=== PATIENT | female | born 1950 | race Caucasian/White ===

== ENCOUNTER 2022-05-20 08:00 | Outpatient (RCR) | payer MEDICARE, BC, SELFPAY ==
--- NOTE | 2022-05-20 12:42 | PT.OPDNX ---
PT [facility] Outpatient Daily Note PT [facility] Outpatient Daily Note Start: 04/02/22 11:15 Freq: Status: Active Protocol: Document 05/20/22 12:29 SAWYER (Rec: 05/20/22 12:41 SAWYER [id number]) E-signed By BLAIR VoraT, MS PT OP Daily Progress Note Visit Information Note Type Recert/Progress Note Visit Number [id number] Insurance Authorized Visits - Physician Authorized Visits - Insurance Information Recert Due Date 05/13/22 Insurance Name Medicare B,[employer] Shield Medical Diagnosis Status-post right femur fracture ORIF 01/13/22 Treating Diagnosis R hip pain, decreased R LE flexibility, R LE weakness, imbalance and gait dysfunction . Subjective Subjective Pt reports she has stopped using a SPC for walking on even surfaces but continues to use one with longer distances of amb and uneven surfaces. R hip became tight and sore during week long trip to her cabin after [address] HEP going well and pt motivated to return to the pool when it opens. Pain Comments 0-3/10 Objective Other/Pertinent Objective Hip AROM Flexion: R 103 deg, L 108 deg Knee AROM: R 0-0-122 deg, L 0-0-138 deg Strength Hip flex: right 4/5, left 5/5 Knee ext: right 5/5, left 5/5 Knee flex: right 4/5, left 5/5 DF: bilat 5/5 Gait: without AD increased B stride width, decreased velocity and mild decreased R toe off. Swelling: none observed Sensation: light touch intact bilat LE Other: HS 90-90: B lacking 20 Patient Instructed in Risks/Benefits Yes Therapeutic Exercise Therapeutic Exercise Minutes (minutes) 45 Therapeutic Exercise: To Restore NuStep progressed 10 min, L4 Functional Status Gastroc stretching, HR, standing december at [facility] standing hip abd R/L progressed light B UE support 3 x 9 sidestepping R/L progressed 30 x 6 Progressed 6 step ups fwd 1 UE support 8 x 3 with fatigue Progressed to SLS light 1 UE support B Progressed to walking december 26 ' x 6 no UE support with fatigue Progressed leg press B 80# 11 x 3 Progressed seated hip ABD B BTB 8 x 3 Gait practice without SPC cueing for quad and glute engagement, heel-toe pattern and increased velocity. Stable pattern following. Foam roller to length of R quad and ITB Skilled passive R piriformis stretching. Treatment Minutes Timed Code Treatment Minutes 45 Total Treatment Time 45 Billing Units Therapeutic Exercise Units 2 Assessment/Impression Assessment/Impression Pt displays steady progress in PT with improved quality of gait without an AD with continued imbalance, deconditioning and R LE weakness. Pt able to perform more daily activities with decreased pain levels. R piriformis and hip tightness leading to elevated pain levels with extended sitting and driving. Endurance improving with decreased fatigue levels with progression of unilateral strength and balance exercises today. Making steady progress towards all PT goals and she will benefit from continued skilled PT intervention working towards attaining her PLOF, progressing as able. Plan of Care Physical Therapy Goals Short-term goals to be completed in 4 weeks: 1.Pt will report improved quality of sleep waking <2x per night due to R hip pain for >3 consecutive days. MET. 2.Pt display improved R LE strength as evidenced by performing >10 SLR to improve quality of gait. MET 3.Pt will be able to amb for > 100 feet with FWW or SPC to safely attend medical appointments. MET Long-term goals to be completed in 12 weeks: 1.Pt will be independent and compliant with HEP. Progressing 2.Pt will display improved R SLS >3 sec with minimal sway to decrease falls risk. Progressing 3.Pt will display improved right hip flex, ABD and ext strength >/= 4+/5 to improve quality of gait. Progressing 4.Pt will report >50% improvement in LEFS questionnaire to significantly improve tolerance to functional activities. Progressing Daily Plan of Care Continue per POC Recertification Information Initial Certification Date 02/23/22 Recertification Start Date 05/20/22 Recertification Due Date 08/18/22 Reasons to Continue Skilled Therapy See assessment. Rehabilitation Potential Good due to deconditioning and PSH. Continued Plan of Care and Interventions Continued therapeutic exercise , NM re-ed, and manual therapy 1x per week for 6-8 additional visits, transitioning to I sx management as able. Provider Signature Shows Agreement With POC & Medical Necessity Physician Comment/Change Comment or Changes Physician NPI Number #
== END 2022-12-23 16:29 | disposition home or self-care (01) ==
PROVIDERS: PCP Family Medicine; Visit Provider Orthopaedic Surgery
DX: M25.551 Pain in right hip (principal); Z51.89 Encounter for other specified aftercare
CPT/HCPCS: 97110

== ENCOUNTER 2022-09-24 08:51 | Outpatient (CLI) | payer MEDICARE, BC, SELFPAY ==
--- NOTE | 2022-09-24 09:15 | MR_ITS ---
[address] [address] Phone:?[phone] Fax:?[phone] Referring Physician Information: Jasiel Desouza M.D. [id number] [facility] [address] Phone:?[phone] Fax:?[phone] Patient:Adenike Mcgraw D.O.B:?1950 Sex:?Female Phone:?[phone] [facility] MRN:?[id number] Exam Date:?09/24/2022 ? EXAM: MRI of the RIGHT KNEE, without contrast CLINICAL: Right knee pain. Evaluate for medial meniscal tear. COMPARISONS: X-rays dated 09/16/2022. TECHNICAL: MR sequences of the right knee: sagittals: PD, PDFS coronals: PD, STIR axials: PD, PDFS SEDATION: None. CONTRAST: None. FINDINGS: Ligaments: ACL: Intact. PCL: Mild thickening and increased signal involving the ligament suggesting mild mucoid degeneration. No evidence of ligament disruption. MCL: Intact. LCL: There is mild partial tearing of the conjoined distal LCL and biceps femoris tendon. Posterolateral corner: Mild partial tearing of the conjoined distal LCL and biceps femoris tendon. Popliteus tendon, iliotibial band, and the popliteofibular ligament appear intact. Posteromedial corner: Semimembranosus, pes anserine tendons and posterior oblique ligament appear intact. Extensor mechanism: Patellar tendon: Intact, without tendinopathy. Quadriceps tendon: Intact, without tendinopathy. Retinacula: Medial and lateral retinacula are intact. Fat pads: Unremarkable infrapatellar Hoffa's, quadriceps and prefemoral fat pads. Patellofemoral joint: Patella: Small segment of full-thickness chondral loss involves the inferior junction of the patellar median ridge and lateral facet on axial series 4 image 18. There is heterogeneity and grade 2-3 chondral thinning involving the medial patellar facet and patellar median ridge with minimal subchondral reactive marrow edema involving the patellar median ridge. Trochlea: No significant chondromalacia. Medial compartment: Medial meniscus: No evidence of discrete meniscal tear or meniscal displacement. Medial cartilage: No significant chondromalacia. Lateral compartment: Lateral meniscus: No evidence of discrete meniscal tear or meniscal displacement. Lateral cartilage: No significant chondromalacia. Knee joint: Effusion: Physiologic right knee effusion. Intra-articular bodies:?No convincing bodies identified. Popliteal cyst: None. Bones: Postoperative changes are seen to involve the distal femur with associated postsurgical artifact. No osseous fracture site is identified. IMPRESSION: 1. Patellar chondromalacia/chondral loss as above. 2. Mild partial tearing of the conjoined distal LCL and biceps femoris tendon. Mild mucoid degeneration of the PCL. 3. Postoperative changes involving the distal femur. 4. No evidence of meniscal tear or fracture. No joint effusion. JCZ Electronically signed on 09/24/2022 12:38:00 PM by Dion Rios D.O.
== END 2022-09-24 08:52 | disposition home or self-care (01) ==
LOC: MRI 08:52
PROVIDERS: PCP Family Medicine; Visit Provider Orthopaedic Surgery
DX: M25.561 Pain in right knee (principal); M22.41 Chondromalacia patellae, right knee
CPT/HCPCS: 73721

== ENCOUNTER 2022-11-25 08:45 | Outpatient (RCR) | payer MEDICARE, BC, SELFPAY ==
--- NOTE | 2022-10-27 08:45 | PT.OPEX ---
PT [facility] Outpatient Eval PT [facility] Outpatient Eval Start: 10/27/22 07:43 Freq: Status: Active Protocol: Document 10/27/22 07:44 WANDA (Rec: 10/27/22 08:36 WANDA [id number]) E-signed By Benedicto Luevano DPT Physical Therapy Outpatient Evaluation Insurance Information Insurance Name Medicare B,Blue [employer] Medical Diagnosis R knee OA Treating Diagnosis muscle weakness limited ROM, Referring MD deborah de jesus Subjective Subjective Gin comes into clinic dealing with R knee pain due to OA. Last january she had a fall where she broke her femur and hip, which was the second time she had broken her femur . She thinks after the fall she started walking differently which has increased the pain on the R, the L knee can be uncomfortable but not to the same degree. She does have a internal fixation for the R femur. Stairs have become troublesome, along with walking can only be several minutes before needing rest. States sitting too long can make the knee extra stiff. She would like to get back into the [facility] to workout more along with work on her balance due to hx of falls. Date of Last Physician Visit 10/07/22 Current Work Status Retired Precautions Treatment Precautions/Contraindications diabetes and cancer - not dealing with any more, hx of heart attacks Objective Other/Pertinent Objective GAIT/FUNCTIONAL MOBILITY ambulates with increased trunk lean over stance leg decreased pace Squat: narrow base squat with trunk lean to the L KNEE ROM L 3-0-114 R 2-104 LLE MMT: Hip flexion: R 4/5 L4+ /5 Hip abduction: R 3/5 L3+ /5 Hip extension: R 3+/5 L 4-/5 Knee flexion: R 4+/5 L4+ /5 Knee extension: R 4/5 L4+ /5 SPECIAL TEST Joint line tenderness: positive B knee and medial joint line more sensitive vs lateral bilateral hamstring tightness Tx: quad sets 3 sec holds B x 10 SLR flexion cueing for slow motion x 10 B - felt some nausea so needed prolonged rest held off on more strengthening due to symptoms hamstring stretch 5x 15 sec holds Assessment Assessment/Impression Pt is a 72 yr old female who presents with concerns of right knee pain . Signs and symptoms likely indicating / consistent with R knee OA . Patient also has notable objective findings including limited ROM, impaired balance, decreased strength also likely contributing to the problem. Patient is a good candidate for skilled therapy to target deficits described above. Skilled PT intervention is necessary for use of therapeutic exercise manual therapy, neuromuscular re- education, gait training, and therapeutic activity. Functional impairments include difficulty with: walking, standing, sitting, stairs . See appropriate sections of PT eval for complete list of goals and POC. D/C plan and criteria is for pt to achieve the goals as listed below or until max rehab potential is met. Pt was agreeable with plan of care and goals established Plan of Care Rehabilitation Potential Good Physical Therapy Goals STG Pt will be able to perform 10 sit to stands without UE assist to allow for independence with transfers within 4 weeks Patient will demonstrate/ report ability to walk for 10 minutes with pain level <1/10, to allow for community and household ambulation within 4 weeks LTG Pt will be independent with HEP within 8 weeks to allow for independence and continued improvement past formal therapy Patient will demonstrate/ report ability to walk for 15 minutes with pain level <1/10, to allow for community and household ambulation within 8 weeks Patient will demonstrate/ report ability to stand for 10 minutes with pain level <1/10 , to allow for home , recreational and work tasks within 8 weeks Coordination/Communication With Referral Source Treatment Plan/Direct Interventions Gait Training,Joint Mobilization,Manual Therapy, Neuromuscular Re-ed,Self-Care/ Home Management,Therapeutic Activities,Therapeutic Exercises Frequency/Duration 1 x a week for 6-12 weeks Patient Will Be Discharged From Therapy Completion of LTG(s), Independently Progressing Evaluation Billing Complexity Low Certification Information Initial Certification Date 10/27/22 Ending Certification Date 01/20/23 Physician Comment/Change : Physician NPI Number #
== END 2023-01-20 10:18 | disposition home or self-care (01) ==
PROVIDERS: PCP Family Medicine; Visit Provider Orthopaedic Surgery
DX: M17.11 Unilateral primary osteoarthritis, right knee (principal); Z51.89 Encounter for other specified aftercare
CPT/HCPCS: 97110; 97161

== ENCOUNTER 2023-06-26 19:11 | Outpatient (CLI) | payer OTHER, MEDICARE, BC, SELFPAY | END 2023-06-26 19:12 | disposition home or self-care (01) | LOC: AMB 08-02 12:04 | PROVIDERS: PCP Family Medicine; Visit Provider Family Medicine | DX: S29.9XXA Unspecified injury of thorax, initial encounter (principal); V49.49XA Driver injured in collision with other motor vehicles in traffic accident, initial encounter; Y92.410 Unspecified street and highway as the place of occurrence of the external cause | CPT/HCPCS: A0425; A0427 ==

== ENCOUNTER 2023-06-26 19:38 | Inpatient (IN) | payer OTHER, MEDICARE, BC, SELFPAY ==
[2023-06-26] VITALS (22 sets, daily range): BP systolic 85–121; BP diastolic 36–65; PULSE 62–75; RESP 16–19; TEMP 36–36.5; O2SAT 90–98; BMI 38.1; BMI 40.2
--- NOTE | 2023-06-26 19:50 | CRLHL7_ITS ---
For Patients: As a result of the Century Cures Act, medical imaging exams and procedure reports are released immediately into your electronic medical record. You may view this report before your referring provider. If you have questions, please contact your health care provider. INDICATION: Trauma. COMPARISON: 10/13/2017, 01/12/2022 TECHNIQUE: CT of the brain/head without the use of IV contrast. Multiplanar axial, coronal, and sagittal reformats were reconstructed. FINDINGS: Normal singh-white matter differentiation throughout. No intracranial hemorrhage. No mass, mass effect, or midline shift. The ventricles are normal in size and shape. No fracture or focal osseous lesion. The mastoid and middle ears are clear. The paranasal sinuses are clear. Included orbit and globe are normal. IMPRESSION: Normal head CT. Please note that all CT scans at this facility use dose modulation, iterative reconstruction, and/or weight-based dosing when appropriate to reduce radiation dose to as low as reasonably achievable. Dictated by Jessica Jeronimo MD @ 06/26/2023 9:01:44 PM (Electronically Signed)
--- NOTE | 2023-06-26 19:50 | CRLHL7_ITS ---
For Patients: As a result of the Century Cures Act, medical imaging exams and procedure reports are released immediately into your electronic medical record. You may view this report before your referring provider. If you have questions, please contact your health care provider. INDICATION: Trauma. COMPARISON: 01/12/2022, same day head CT. TECHNIQUE: CT of the cervical spine without contrast. Multiplanar axial, coronal, and sagittal reformats were reconstructed. FINDINGS: No fracture or dislocation. C5-6 disc degenerative change. Minimal facet degenerative change. No severe neural foraminal stenosis. No central canal stenosis. No focal bony lesions. Severely enlarged thyroid that extends into the mediastinum. Coarsely calcified nodule left lobe. IMPRESSION: 1. No acute traumatic findings in the cervical spine. 2. Severely enlarged thyroid with nodules. This is not a new finding. Please note that all CT scans at this facility use dose modulation, iterative reconstruction, and/or weight-based dosing when appropriate to reduce radiation dose to as low as reasonably achievable. Dictated by Jessica Jeronimo MD @ 06/26/2023 9:05:28 PM (Electronically Signed)
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
[2023-06-26 20:11] LABS: Lactate* 1.5 mmol/L (0.5-1.9)
[2023-06-26 20:13] LABS: Basophils Absolute Auto 0.03 K/uL (0.00-0.30); Basophils Percent Auto 0.4 % (0.0-3.0); Eosinophils Absolute Auto 0.14 K/uL (0.00-0.50); Hematocrit 37.4 % (33.0-51.0); Hemoglobin* 12.4 gm/dL (12.0-16.0); Immature Granulocytes Abs Auto 0.07 K/uL (0.00-0.30); Lymphocytes Percent Auto 18.4 % (20-44); Mean Corpuscular HGB Conc 33 gm/dL (32-36); Mean Corpuscular Hemoglobin 29 pg (26-34); Mean Corpuscular Volume 88 fL (80-100); Monocytes Percent Auto 5.4 % (0.0-11.0); Neutrophils Percent Auto 72.8 % (42.0-72.0); Platelet Count* 217 K/uL (140-440); RDW Coefficient of Variation % 12.5 % (11.5-15.5); Red Blood Count 4.24 m/uL (4.00-5.20); White Blood Count* 7.02 K/uL (4.50-11.00)
[2023-06-26 20:14] LABS: Slide Review Reflex No
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
[2023-06-26 20:28] LABS: Albumin* 3.9 g/dL (3.3-5.0); Chloride* 102 mmol/L (96-114)
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
[2023-06-26 20:29] LABS: Potassium* 3.9 mmol/L (3.6-5.1); Sodium* 138 mmol/L (135-149)
[2023-06-26 20:31] LABS: Anion Gap 8 mEq/L (7-15); Aspartate Amino Transferase* 43 U/L (12-35); Bilirubin Total* 0.5 mg/dL (0.1-1.5); Blood Urea Nitrogen* 32 mg/dL (7-30); Carbon Dioxide* 28 mmol/L (20-32); Creatinine* 1.1 mg/dL (0.5-1.5); Est. Creatinine Clearance* 39.92; Estimated Glomerular Filt Rate 53 ml/min; Total Protein* 7.1 g/dL (6.0-8.3)
[2023-06-26 20:32] LABS: Alanine Aminotransferase* 23 U/L (4-35); Alkaline Phosphatase* 94 U/L (40-150); Calcium* 9.1 mg/dL (8.4-10.6); Glucose* 71 mg/dL (60-115)
[2023-06-26 20:43] LABS: INR 1.02 (0.91-1.10); Prothrombin Time 14.1 Seconds
[2023-06-26 20:44] LABS: Partial Thromboplastin Time* 26 Seconds (23-33)
[2023-06-26 20:51] LABS: Ethanol* < 0.01 % (0.01-0.03); NT Pro B Type NatriureticPept* 702 pg/mL
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
[2023-06-26 22:38] LABS: SARS PCR* Negative SARS-CoV-2 (Negative)
--- NOTE | 2023-06-26 23:15 | PC.NURSE ---
report given to Isaura PAPPAS on Med surg. belongings sent with patients . pateint transport to room 256
[2023-06-27] VITALS (7 sets, daily range): BP systolic 96–108; BP diastolic 44–58; PULSE 66–83; RESP 16–18; TEMP 36.3–37.2; O2SAT 90–97
[2023-06-27 00:27] LABS: Appearance Urine Slightly Cloudy (Clear); Bilirubin Urine Negative (Negative); Blood Urine 1+ (Negative); Color Urine Yellow (Yellow); Glucose Urine Negative (Negative); Ketones Urine 1+ (Negative); Leukocyte Esterase Urine Negative (Negative); Nitrite Urine Negative (Negative); Protein Urine Negative (Negative); Urobilinogen Urine 0.2 (0.2-1.0); pH Urine 5.5 (5.0-8.5)
[2023-06-27 00:36] LABS: Bacteria Urine Few; Calcium Oxalate Crystals Urine Few; Squamous Epithelial Cell Urine Few (None-Few)
[2023-06-27 00:51] LABS: Free T4 Free Thyroxine* 1.22 ng/dL (0.70-1.85)
[2023-06-27 01:05] LABS: Thyroid Stimulating Hormone* 0.145 uIU/mL (0.270-4.20)
[2023-06-27] MEDS: ACETAMINOPHEN 325 MG TABLET 650 MG PO ×2 (01:22→08:48)
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
[2023-06-27 06:40] LABS: Basophils Absolute Auto 0.01 K/uL (0.00-0.30); Basophils Percent Auto 0.1 % (0.0-3.0); Hematocrit 32.4 % (33.0-51.0); Hemoglobin* 10.8 gm/dL (12.0-16.0); Immature Granulocytes Abs Auto 0.03 K/uL (0.00-0.30); Immature Granulocytes Pct Auto 0.3 %; Lymphocytes Percent Auto 4.8 % (20-44); Mean Corpuscular HGB Conc 33 gm/dL (32-36); Mean Corpuscular Hemoglobin 30 pg (26-34); Mean Corpuscular Volume 90 fL (80-100); Monocytes Percent Auto 5.9 % (0.0-11.0); Neutrophils Percent Auto 88.9 % (42.0-72.0); Platelet Count* 186 K/uL (140-440); RDW Coefficient of Variation % 12.8 % (11.5-15.5); Red Blood Count 3.62 m/uL (4.00-5.20)
[2023-06-27] MEDS: OXYCODONE 5 MG TABLET PO ×2 (06:56→14:19)
[2023-06-27 07:05] LABS: Slide Review Reflex No
[2023-06-27] MEDS: CYANOCOBALAMIN (VITAMIN B-12) 500 MCG TABLET 1000 MCG PO (08:48)
[2023-06-27] MEDS: CETIRIZINE HCL 10 MG TABLET PO (08:48)
[2023-06-27] MEDS: ASPIRIN 81 MG TAB.CHEW PO (08:48)
[2023-06-27] MEDS: METOPROLOL SUCCINATE (XL) 100 MG TAB PO (08:48)
[2023-06-27] MEDS: OMEPRAZOLE 20 MG CAPSULE DR 40 MG PO (08:48)
[2023-06-27] MEDS: CLOPIDOGREL 75 MG TABLET PO (08:49)
[2023-06-27] MEDS: SODIUM CHLORIDE 0.9 % (FLUSH) 10 ML SYRINGE 5 ML IVF ×2 (08:49→20:32)
[2023-06-27] MEDS: IPRAT-ALBUT 0.5-2.5 MG/3 ML NEB IH ×3 (08:49→20:32)
[2023-06-27] MEDS: FLUOXETINE HCL 20 MG CAPSULE 40 MG PO (08:49)
[2023-06-27] MEDS: ROSUVASTATIN CALCIUM 10 MG TABLET 40 MG PO (08:49)
[2023-06-27 10:15] LABS: Creatine Kinase* 174 U/L (41-117); Creatinine* 1.3 mg/dL (0.5-1.5); Est. Creatinine Clearance* 33.78; Estimated Glomerular Filt Rate 44 ml/min
[2023-06-27 10:16] LABS: Blood Urea Nitrogen* 47 mg/dL (7-30)
[2023-06-27 10:19] LABS: C Reactive Protein* 2.9 mg/dL (0.5-1.0)
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
[2023-06-28] VITALS (8 sets, daily range): BP systolic 99–116; BP diastolic 14–50; PULSE 74–92; RESP 16–18; TEMP 36.4–37.1; O2SAT 93–97
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
[2023-06-28] MEDS: OXYCODONE 5 MG TABLET PO ×3 (07:42→21:11)
[2023-06-28 08:14] LABS: Hematocrit 26.8 % (33.0-51.0); Mean Corpuscular HGB Conc 34 gm/dL (32-36); Mean Corpuscular Hemoglobin 30 pg (26-34); Mean Corpuscular Volume 89 fL (80-100); Platelet Count* 171 K/uL (140-440); Red Blood Count 3.02 m/uL (4.00-5.20); White Blood Count* 7.77 K/uL (4.50-11.00)
[2023-06-28 08:28] LABS: Slide Review Reflex No
[2023-06-28 08:29] LABS: Chloride* 95 mmol/L (96-114)
[2023-06-28 08:30] LABS: Albumin* 3.4 g/dL (3.3-5.0); Potassium* 4.2 mmol/L (3.6-5.1); Sodium* 129 mmol/L (135-149)
[2023-06-28 08:32] LABS: Creatinine* 1.6 mg/dL (0.5-1.5); Est. Creatinine Clearance* 27.45; Estimated Glomerular Filt Rate 34 ml/min
[2023-06-28 08:33] LABS: Anion Gap 7 mEq/L (7-15); Aspartate Amino Transferase* 32 U/L (12-35); Blood Urea Nitrogen* 67 mg/dL (7-30); Carbon Dioxide* 27 mmol/L (20-32); Creatine Kinase* 157 U/L (41-117); Glucose* 272 mg/dL (60-115); Phosphorus* 4.6 mg/dL (2.5-4.5)
[2023-06-28 08:34] LABS: Calcium* 8.5 mg/dL (8.4-10.6)
[2023-06-28] MEDS: ROSUVASTATIN CALCIUM 10 MG TABLET 40 MG PO (08:39)
[2023-06-28] MEDS: ASPIRIN 81 MG TAB.CHEW PO (08:40)
[2023-06-28] MEDS: CLOPIDOGREL 75 MG TABLET PO (08:40)
[2023-06-28] MEDS: OMEPRAZOLE 20 MG CAPSULE DR 40 MG PO (08:40)
[2023-06-28] MEDS: CETIRIZINE HCL 10 MG TABLET PO (08:40)
[2023-06-28] MEDS: METOPROLOL SUCCINATE (XL) 100 MG TAB PO (08:41)
[2023-06-28] MEDS: FLUOXETINE HCL 20 MG CAPSULE 40 MG PO (08:41)
[2023-06-28] MEDS: CYANOCOBALAMIN (VITAMIN B-12) 500 MCG TABLET PO (08:42)
[2023-06-28] MEDS: SODIUM CHLORIDE 0.9 % (FLUSH) 10 ML SYRINGE 5 ML IVF (08:43)
[2023-06-28] MEDS: IPRAT-ALBUT 0.5-2.5 MG/3 ML NEB IH ×3 (08:48→21:03)
[2023-06-28 10:56] LABS: Creatine Kinase* 111 U/L (41-117)
[2023-06-28] MEDS: 0.9 % SODIUM CHLORIDE 1000 ml 1,000 ML 125 ML IV (11:47)
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
--- NOTE | 2023-06-28 18:08 | PC.NURSE ---
Pt alert and oriented. Pt had complaints of pain ranging from 4-6; see EMAR for intervention. Pt assist of one with walker and gait belt. Pt uses own insulin pump; 7am 282- 10 units; 11am 27- 8 units; 17-288- 20 units. Pt up in chair. Pt napped on and off throughout shift.?
[2023-06-28] MEDS: ACETAMINOPHEN 325 MG TABLET 650 MG PO (21:10)
[2023-06-28] MEDS: HYDROmorphone 0.5 mg/0.5 ml inj IVP (22:18)
--- NOTE | 2023-06-28 22:44 | W.PM.CROSSCO ---
Subjective Subjective Interval history: reviewed with RN; 1 unit prbc ordered appears previous order had been cancelled or dc'd
[2023-06-29] VITALS (14 sets, daily range): BP systolic 91–132; BP diastolic 36–57; PULSE 75–88; RESP 14–18; TEMP 36.3–37.1; O2SAT 90–97
[2023-06-29 06:03] LABS: HCO3 VBG 29 mmol/L (21-28); Lactate* 1.2 mmol/L (0.5-1.9); PCO2 VBG 51 mmHG (40-50); PO2 VBG 28.7 mmHG (25-47); pH VBG 7.366 (7.32-7.43)
[2023-06-29] MEDS: HYDROmorphone 0.5 mg/0.5 ml inj IVP ×3 (06:10→18:53)
[2023-06-29 06:16] LABS: Hemoglobin* 9.4 gm/dL (12.0-16.0); Mean Corpuscular HGB Conc 34 gm/dL (32-36); Mean Corpuscular Hemoglobin 30 pg (26-34); Mean Corpuscular Volume 88 fL (80-100); Platelet Count* 154 K/uL (140-440); Red Blood Count 3.18 m/uL (4.00-5.20); Slide Review Reflex No
--- NOTE | 2023-06-29 06:21 | PC.NURSE ---
End of Shift: Pt appropriate and cooperative throughout shift, remained AO. Received 1 unit PRBC, tolerated well, reported feeling less lightheaded when she stood up to use restroom post transfusion. Pt ambulates with walker, GB, SBA. Continent with bladder, no BM throughout shift. Reported leg pain on right side 10/10 at times, states it is at its worse when they are spasming. Resolved with IV dilauded.
[2023-06-29 06:27] LABS: Chloride* 101 mmol/L (96-114); Potassium* 4.3 mmol/L (3.6-5.1); Sodium* 135 mmol/L (135-149)
[2023-06-29 06:30] LABS: Creatinine* 1.1 mg/dL (0.5-1.5); Est. Creatinine Clearance* 39.92; Estimated Glomerular Filt Rate 53 ml/min
[2023-06-29 06:31] LABS: Anion Gap 4 mEq/L (7-15); Blood Urea Nitrogen* 53 mg/dL (7-30); Calcium* 8.8 mg/dL (8.4-10.6); Carbon Dioxide* 30 mmol/L (20-32); Glucose* 194 mg/dL (60-115); Magnesium* 2.7 mg/dL (1.5-2.6)
[2023-06-29 06:34] LABS: C Reactive Protein* 5.7 mg/dL (0.5-1.0)
[2023-06-29 07:13] LABS: NT Pro B Type NatriureticPept* 2540 pg/mL
[2023-06-29] MEDS: METOPROLOL SUCCINATE (XL) 100 MG TAB PO (09:10)
[2023-06-29] MEDS: ASPIRIN 81 MG TAB.CHEW PO (09:10)
[2023-06-29] MEDS: FLUOXETINE HCL 20 MG CAPSULE 40 MG PO (09:10)
[2023-06-29] MEDS: ROSUVASTATIN CALCIUM 10 MG TABLET 40 MG PO (09:10)
[2023-06-29] MEDS: CYANOCOBALAMIN (VITAMIN B-12) 500 MCG TABLET PO (09:10)
[2023-06-29] MEDS: CLOPIDOGREL 75 MG TABLET PO (09:10)
[2023-06-29] MEDS: IPRAT-ALBUT 0.5-2.5 MG/3 ML NEB IH ×3 (09:10→21:03)
[2023-06-29] MEDS: OMEPRAZOLE 20 MG CAPSULE DR 40 MG PO (09:10)
[2023-06-29] MEDS: SODIUM CHLORIDE 0.9 % (FLUSH) 10 ML SYRINGE 5 ML IVF ×3 (09:11→21:04)
[2023-06-29] MEDS: CETIRIZINE HCL 10 MG TABLET PO (09:16)
[2023-06-29] MEDS: ONDANSETRON 2 MG/ML inj 4 MG IVP (09:19)
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
--- NOTE | 2023-06-29 16:12 | PC.SOCIAL ---
Discharge planning: Met again with pt, and daughter in room regarding discharge plan. Pt is still hoping to return home from the hospital but has heard recommendation for short term rehab and is willing for high school social studies teacher to look for placement in case that is needed at discharge. Provided pt and family with halfway resource list including DHS ratings and information on where to find the website with facility ratings. Pt is requesting placement at [facility] in [place] as her first choice. Other facilities she would consider are [facility], [facility] and [facility]. abrasive worker called and left messages at all of these faciities. Awaiting calls back regarding bed availability. abrasive worker to follow up as needed.
[2023-06-29] MEDS: CYCLOBENZAPRINE HCL 10 MG TABLET PO (16:24)
[2023-06-29] MEDS: TIZANIDINE HCL 4 MG TABLET PO (17:24)
--- NOTE | 2023-06-29 17:47 | PC.NURSE ---
Pt alert and oriented. Pt had complaints of pain ranging from 4-10; See EMAR for intervention. Pt assist of one with walker and gait belt. Pt uses own insulin pump; 7am 207- 5.8 units; 11am 193- 3 units; 17 244- 15 units. Pt up in chair. Pt napped on and off throughout shift. Pt had multiple spasms in knee during shift; reported to hospitalist- see EMAR for intervention.?
[2023-06-29 20:03] LABS: Free T3 3.1 pg/mL (2.5-4.3)
[2023-06-30] VITALS (8 sets, daily range): BP systolic 104–129; BP diastolic 43–68; PULSE 74–86; RESP 16–18; TEMP 36.6–37.3; O2SAT 94–97
[2023-06-30] MEDS: ONDANSETRON 2 MG/ML inj 4 MG IVP (04:18)
[2023-06-30 06:25] LABS: Hemoglobin* 9.1 gm/dL (12.0-16.0); Mean Corpuscular HGB Conc 34 gm/dL (32-36); Mean Corpuscular Hemoglobin 30 pg (26-34); Mean Corpuscular Volume 89 fL (80-100); Platelet Count* 149 K/uL (140-440); Red Blood Count 3.02 m/uL (4.00-5.20); White Blood Count* 6.85 K/uL (4.50-11.00)
[2023-06-30 06:32] LABS: Slide Review Reflex No
[2023-06-30 06:45] LABS: Chloride* 99 mmol/L (96-114); Potassium* 4.9 mmol/L (3.6-5.1); Sodium* 133 mmol/L (135-149)
[2023-06-30 06:48] LABS: Anion Gap 5 mEq/L (7-15); Blood Urea Nitrogen* 29 mg/dL (7-30); Calcium* 8.6 mg/dL (8.4-10.6); Carbon Dioxide* 29 mmol/L (20-32); Creatinine* 0.8 mg/dL (0.5-1.5); Est. Creatinine Clearance* 43.91; Estimated Glomerular Filt Rate 78 ml/min; Glucose* 252 mg/dL (60-115)
--- NOTE | 2023-06-30 06:53 | PC.NURSE ---
A&O, pleasant and cooperative. Pt rating pain 5/10. Pt states this is a manageable number and denies any pain medication. Pt reports seeing ? children playing with pool noodles on the ceiling? and reports nightmares throughout the night. Pt says that this has happened before when taking opioids. She is able to reorientate herself. Bed alarm in place. A1 w/ walker and gait belt to bathroom. Pt complained of nausea while moving. Zofran given w/ stated relief. Pt uses own insulin pump. CPAP worn overnight.
[2023-06-30 08:38] LABS: Creatine Kinase* 115 U/L (41-117)
[2023-06-30] MEDS: METOPROLOL SUCCINATE (XL) 100 MG TAB PO (09:03)
[2023-06-30] MEDS: ASPIRIN 81 MG TAB.CHEW PO (09:03)
[2023-06-30] MEDS: CETIRIZINE HCL 10 MG TABLET PO (09:03)
[2023-06-30] MEDS: CYANOCOBALAMIN (VITAMIN B-12) 500 MCG TABLET PO (09:03)
[2023-06-30] MEDS: FLUOXETINE HCL 20 MG CAPSULE 40 MG PO (09:03)
[2023-06-30] MEDS: OMEPRAZOLE 20 MG CAPSULE DR 40 MG PO (09:03)
[2023-06-30] MEDS: CLOPIDOGREL 75 MG TABLET PO (09:03)
[2023-06-30] MEDS: IPRAT-ALBUT 0.5-2.5 MG/3 ML NEB IH ×3 (09:03→20:36)
[2023-06-30] MEDS: ROSUVASTATIN CALCIUM 10 MG TABLET 40 MG PO (09:03)
[2023-06-30] MEDS: SODIUM CHLORIDE 0.9 % (FLUSH) 10 ML SYRINGE 5 ML IVF ×3 (09:04→20:37)
[2023-06-30] MEDS: SCOPOLAMINE 1 MG/3 DAY PATCH 1 PATCH TRANSDERMA (09:10)
[2023-06-30] MEDS: HYDROmorphone 0.5 mg/0.5 ml inj IVP (13:06)
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
--- NOTE | 2023-06-30 16:30 | PC.SOCIAL ---
Discharge planning: Contacted the following [place] [facility] facilities for placement with the listed results: 1. [facility] - faxed information and awaiting call back with decision on admit. 2. [facility] - no bed available 3. [facility] - No bed available 4. [facility] - faxed information and awaiting call back with decision on admit. bull gang worker to follow up as needed
--- NOTE | 2023-06-30 18:10 | PC.NURSE ---
Pt alert and oriented. Pt had complaints of pain ranging from 4-9 See EMAR for intervention. Pt assist of one with walker and gait belt. Pt uses own insulin pump; 7am 269- 20 units; 11am 248- 20 units; 17 206- 10 units. Pt up in chair. Pt napped on and off throughout shift. Pt had multiple spasms in knee during shift; reported to hospitalist. Warm pack alleviated spasms.
[2023-06-30] MEDS: ACETAMINOPHEN 325 MG TABLET 650 MG PO (20:36)
[2023-06-30] MEDS: diazePAM 5 MG TABLET 2.5 MG PO (21:42)
[2023-07-01] MEDS: OXYCODONE 5 MG TABLET PO ×3 (00:41→20:52)
[2023-07-01 03:09] VITALS: BP 120/57; PULSE 70; RESP 16; TEMP 36.3; O2SAT 92
--- NOTE | 2023-07-01 06:35 | PC.NURSE ---
End of shift: A&O, pleasant and cooperative.?Reporting increased leg spasms. MD updated, see orders. PRN oxycodone given overnight for reported pain. Sleeping upon reassessment. A1 w/ walker and gait belt. Denies n/v and dizziness. Pt uses own insulin pump. Uses call light appropriately.
[2023-07-01 06:42] LABS: Sodium* 133 mmol/L (135-149)
[2023-07-01 08:09] VITALS: BP 119/52; PULSE 70; RESP 14; TEMP 36.2; O2SAT 98
[2023-07-01] MEDS: OMEPRAZOLE 20 MG CAPSULE DR 40 MG PO (08:58)
[2023-07-01] MEDS: CLOPIDOGREL 75 MG TABLET PO (08:58)
[2023-07-01] MEDS: FLUOXETINE HCL 20 MG CAPSULE 40 MG PO (08:58)
[2023-07-01] MEDS: ROSUVASTATIN CALCIUM 10 MG TABLET 40 MG PO (08:58)
[2023-07-01] MEDS: METOPROLOL SUCCINATE (XL) 100 MG TAB PO (08:58)
[2023-07-01] MEDS: CYANOCOBALAMIN (VITAMIN B-12) 500 MCG TABLET PO (08:58)
[2023-07-01] MEDS: CETIRIZINE HCL 10 MG TABLET PO (08:59)
[2023-07-01] MEDS: ASPIRIN 81 MG TAB.CHEW PO (08:59)
[2023-07-01] MEDS: SODIUM CHLORIDE 0.9 % (FLUSH) 10 ML SYRINGE 5 ML IVF ×2 (08:59→20:52)
[2023-07-01] MEDS: IPRAT-ALBUT 0.5-2.5 MG/3 ML NEB IH ×2 (08:59→20:52)
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
[2023-07-01 13:11] VITALS: BP 111/46; PULSE 79; RESP 16; TEMP 37.1; O2SAT 94
[2023-07-01 16:02] VITALS: BP 116/49; PULSE 75; RESP 16; TEMP 36.7; O2SAT 95
--- NOTE | 2023-07-01 18:04 | PC.NURSE ---
Pt. ambulating in hallway with walker, transfer belt and assist of one. Experiences intermittent dizziness with movement. Oxycodone administered x 1 for pain.
[2023-07-01 19:33] VITALS: BP 122/66; PULSE 80; RESP 20; TEMP 37.3; O2SAT 97
[2023-07-01 23:00] VITALS: BP 108/46; PULSE 91; RESP 16; TEMP 37.1; O2SAT 92
[2023-07-02 03:01] VITALS: BP 104/46; PULSE 73; RESP 16; TEMP 36.8; O2SAT 96
[2023-07-02] MEDS: OXYCODONE 5 MG TABLET PO ×2 (03:53→08:39)
--- NOTE | 2023-07-02 07:00 | PC.NURSE ---
A&O, pleasant and cooperative.?complaing of leg pain over night. see eMAR for intervention. denies n/v or dizziness. A1 w/ walker and gait belt. uses call light appropriately.
[2023-07-02 07:50] VITALS: BP 114/43; PULSE 74; RESP 20; TEMP 36.9; O2SAT 93
[2023-07-02] MEDS: ASPIRIN 81 MG TAB.CHEW PO (08:51)
[2023-07-02] MEDS: CETIRIZINE HCL 10 MG TABLET PO (08:51)
[2023-07-02] MEDS: CLOPIDOGREL 75 MG TABLET PO (08:52)
[2023-07-02] MEDS: CYANOCOBALAMIN (VITAMIN B-12) 500 MCG TABLET PO (08:52)
[2023-07-02] MEDS: METOPROLOL SUCCINATE (XL) 100 MG TAB PO (08:53)
[2023-07-02] MEDS: FLUOXETINE HCL 20 MG CAPSULE 40 MG PO (08:53)
[2023-07-02] MEDS: ROSUVASTATIN CALCIUM 10 MG TABLET 40 MG PO (08:54)
[2023-07-02] MEDS: OMEPRAZOLE 20 MG CAPSULE DR 40 MG PO (08:54)
[2023-07-02] MEDS: SODIUM CHLORIDE 0.9 % (FLUSH) 10 ML SYRINGE 5 ML IVF (09:03)
[2023-07-02] MEDS: IPRAT-ALBUT 0.5-2.5 MG/3 ML NEB IH (09:03)
[2023-07-02 11:00] VITALS: BP 119/50; PULSE 79; RESP 20; TEMP 36.8; O2SAT 92
--- NOTE | 2023-07-02 12:23 | PC.SOCIAL ---
Discharge planning: Spoke with Hospitalist, and therapies. Patient is now going to discharge home with home care. Met with patient in room who states that her is going to pick her up later today. Gave patient listing of area Home care agencies. Patient selected three agencies. Her first choice did not have any openings
--- NOTE | 2023-07-02 12:32 | PC.SOCIAL ---
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 Patient will now be able to discharge home with home care. Met with patient in room. She is very happy that she is strong enough to go home and states that her will pick her up today. She chose three Home Care agencies from the list provided. Contacted agencies and faxed information packet. Her second choice, [facility] ([phone]) had openings and will be able to start on Wednesday. Face to face was completed by hospitalist and subsequently faxed to [facility]. Social work to follow up as needed.
--- NOTE | 2023-07-02 14:47 | PC.NURSE ---
Patient transfers with assist of one, walker and gait belt. Tolerated diabetic diet. Reported pain in her right shoulder rated 7/10 this morning. PRN Oxycodone was effective. Reported pain rated 3/10 this afternoon. Patient declined any PRN pain medications or interventions at that time. Discharge orders rec'd. Patient discharged at 1410. Staff wheeled patient to front door where her was waiting. Patient left facility with ..
== END 2023-07-02 14:10 | disposition home or self-care (01) | DRG 914 ==
LOC: ED 22:28 → MEDSURG 23:17
PROVIDERS: Family Medicine; Internal Medicine; Admitting Provider Hospitalist; Emergency Provider Family Medicine; PCP Family Medicine; Visit Provider Hospitalist
DX: S09.8XXA Other specified injuries of head, initial encounter (principal); D62 Acute posthemorrhagic anemia; R42 Dizziness and giddiness; S20.211A Contusion of right front wall of thorax, initial encounter; S70.11XA Contusion of right thigh, initial encounter; S40.012A Contusion of left shoulder, initial encounter; S30.1XXA Contusion of abdominal wall, initial encounter; M25.561 Pain in right knee; V43.52XA Car driver injured in collision with other type car in traffic accident, initial encounter; Y92.410 Unspecified street and highway as the place of occurrence of the external cause; I11.0 Hypertensive heart disease with heart failure; Z96.41 Presence of insulin pump (external) (internal); R91.8 Other nonspecific abnormal finding of lung field; E04.2 Nontoxic multinodular goiter; V49.40XA Driver injured in collision with unspecified motor vehicles in traffic accident, initial encounter; W22.11XA Striking against or struck by driver side automobile airbag, initial encounter
CPT/HCPCS: 36415; 36430; 70450; 71260; 72125; 73560; 74177; 80048; 80053; 80069; 81001; 82077; 82550; 82565; 82803; 82962; 83605; 83735; 83880; 84295; 84439; 84443; 84450; 84481; 84484; 84520; 85025; 85027; 85610; 85730; 86140; 86850; 86900; 86901; 86922; 87086; 87186; 87635; 93005; 94640; 94761; 97110; 97112; 97116; 97140; 97163; 97165; 97530; 97535; 99285; 99291; A9270; G0378; G0390; J1170; J2405; J7030; P9016; Q9967

== ENCOUNTER 2023-07-12 12:55 | Emergency (ER) | payer MEDICARE, BC, SELFPAY ==
[2023-07-12 13:07] VITALS: BP 105/56; PULSE 75; RESP 18; TEMP 36.6; O2SAT 100; BMI 37.3
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
== END 2023-07-12 14:08 | disposition home or self-care (01) ==
LOC: ED 13:52
PROVIDERS: Emergency Provider Emergency Medicine Emergency Medical Services; PCP Family Medicine
DX: E10.65 Type 1 diabetes mellitus with hyperglycemia (principal)
CPT/HCPCS: 99283; 99284

== ENCOUNTER 2023-07-16 09:33 | Outpatient (CLI) | payer MEDICARE, BC, SELFPAY ==
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
== END 2023-07-16 09:34 | disposition home or self-care (01) ==
LOC: CT 09:34
PROVIDERS: PCP Family Medicine; Visit Provider Physician Assistant
DX: M25.561 Pain in right knee (principal); M17.11 Unilateral primary osteoarthritis, right knee; S82.141A Displaced bicondylar fracture of right tibia, initial encounter for closed fracture
CPT/HCPCS: 73700

== ENCOUNTER 2023-09-29 11:15 | Outpatient (RCR) | payer OTHER, MEDICARE, BC, SELFPAY ==
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
== END 2023-12-14 10:18 | disposition home or self-care (01) ==
PROVIDERS: PCP Family Medicine; Visit Provider Physician Assistant
DX: S82.141A Displaced bicondylar fracture of right tibia, initial encounter for closed fracture (principal); M26.81 Anterior soft tissue impingement; R29.898 Other symptoms and signs involving the musculoskeletal system; Z51.89 Encounter for other specified aftercare
CPT/HCPCS: 97110; 97112; 97162

== ENCOUNTER 2024-07-14 08:15 | Outpatient (RCR) | payer OTHER, BC, MEDICARE, SELFPAY | END 2024-10-06 09:46 | disposition home or self-care (01) | PROVIDERS: PCP Family Medicine; Visit Provider Family Medicine | DX: R29.6 Repeated falls (principal); R26.81 Unsteadiness on feet; R26.9 Unspecified abnormalities of gait and mobility; Z51.89 Encounter for other specified aftercare | CPT/HCPCS: 97110; 97112; 97161 ==